=== PATIENT | male | born 1985 | race Caucasian/White ===

== ENCOUNTER → 2020-11-22 | Outpatient (CLI) | payer OTHER ==
[~2020-11-22] MED LIST: STELARA90 MG/ML SQ
== END ==
LOC: COL.LAB 15:27
DX: F06.32 Mood disorder due to known physiological condition with major depressive-like episode (principal); F06.4 Anxiety disorder due to known physiological condition; Z63.0 Problems in relationship with spouse or partner; Z79.899 Other long term (current) drug therapy